=== PATIENT | male | born 1930 | race Caucasian/White ===

== ENCOUNTER 2016-06-21 20:31 | Emergency (ER) | payer MEDICARE ==
[~2016-06-21] VITALS: Ht 172.7 cm; Wt 82.0 kg
[~2016-06-21 20:31] MED LIST: ALEN70 PO; ASPI81 PO; AVOD0.5C PO; CHOL4POW4 PO; LORT5TAB PO; MELO7.5T PO; MEVA40TA6 PO; OMEP20CA5 PO; PAXI20TA26 PO; TAB-TAB PO; TERA2CAP3 PO
[2016-06-21 20:33] VITALS: BP 190/76; PULSE 58; RESP 16; TEMP 98.2; O2SAT 96
--- NOTE | 2016-06-21 22:18 | RADRPT ---
EXAM DATE/TIME: 06/21/2016 22:00 [place] COMPARISON: No previous studies available for comparison. INDICATIONS : Right wrist pain from fall today. MEDICAL HISTORY : None. SURGICAL HISTORY : None. ENCOUNTER: Initial ACUITY: 1 day PAIN SCORE: 5/10 LOCATION: Right wrist. FINDINGS: There is slight angulation of the visualized proximal fifth metacarpal. I doubt an acute fracture, ho wever old injury may be present at this location. Correlation recommended as to site of point tendern ess. There is mild ulna minus variance at the wrist. Degenerative changes present most notably in the thumb carpal joint. No definite wrist fracture. CONCLUSION: No definite acute bony injury. Fracisco Sandoval MD on June 21, 2016 at 22:15 Board Certified Radiologist. This report was verified electronically.
[2016-06-21] MEDS ORDERED: MOBI7.5T PO (22:29)
--- NOTE | 2016-06-21 22:34 | PD ---
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 The patient's history and exam is performed using the [employer] interpreter/translator. The patient states that he did not hit his head. No neck or back pain. He's having pain in his right wrist. He is up-to-date with shots. The injury had occurred sometime around 1:00-2:00 this afternoon. PFSH Past Medical History Cancer: Yes (PROSTATE) Cardiovascular Problems: No Hypertension: Yes Medical other: Yes (KIDNEY STONES) Respiratory: Yes (SLEEP APNEA) Tetanus Vaccination: < 5 Years Past Surgical History Ear Surgery: Yes (CATARACTS REMOVED BOTH EYES) Pacemaker: No Other Surgery: Yes Social History Alcohol Use: No Tobacco Use: No Substance Use: No Allergies-Medications (Allergen,Severity, Reaction): Coded Allergies: No Known Allergies (Verified , 06/21/16) Reported Meds & Prescriptions Reported Meds & Active Scripts Active Mobic (Meloxicam) 7.5 Mg Tab 7.5 Mg PO DAILY Review of Systems Except as stated in HPI: all other systems reviewed are Neg Physical Exam Narrative GENERAL: This is a well-nourished, well-developed patient, in no apparent distress. SKIN: No rashes, ecchymoses or lesions. Warm and dry. HEAD: Atraumatic. Normocephalic. EYES: PERRL, EOMI, no discharge or injection. No scleral icterus. EARS: Clear NOSE: Nasal turbinates appear normal. THROAT: Mucosa pink and moist. Airway patent. NECK: Trachea midline. supple, moves head freely. No pain on palpation. LUNGS: Clear to auscultation. CV: Regular in rhythm. ABDOMEN: Soft nontender. Back: No bony tenderness to palpation. Sits up in bed at 90. No saddle anesthesia. EXT: No clubbing cyanosis or edema. Examination of the right upper extremity reveals soft tissue tenderness and bruising to the thenar eminence as well over the distal radius volar surface. No pain on the dorsal surface of the wrist. No anatomical snuffbox pain. No pain in the fingers, elbow or shoulder. There is a superficial skin tear an area of ecchymosis to the dorsal mid forearm. No suturable laceration. Patient has no pain in the left upper extremity as well as lower extremities. Data Data Last Documented VS Vital Signs Date Time Temp Pulse Resp B/P Pulse Ox O2 Delivery O2 Flow Rate FiO2 06/21/16 21:50 18 97 Room Air 06/21/16 20:33 98.2 58 190/76 Orders Wrist, Complete ([id number]) (06/21/16 21:47) Ice/Cold Pack (06/21/16 21:47) Splint Or Brace Apply/Monitor (06/21/16 22:28) MDM Medical Decision Making Medical Screen Exam Complete: Yes Emergency Medical Condition: Yes Medical Record Reviewed: Yes Interpretation(s) Last 24 hours Impressions Wrist X-Ray 06/21/165 Signed Impressions: Service Date/Time: Tuesday, June 21, 2016 22:00 - CONCLUSION: No definite acute bony injury. Fracisco Sandoval MD Differential Diagnosis MDM: High Differential diagnoses: Fracture, sprain, strain, dislocation, contusion, neurovascular injury Narrative Course X-ray of the right wrist is negative for bony injury. Patient is given a Velcro wrist splint and a prescription for meloxicam. This is right wrist and hand contusion Diagnosis Primary Impression: Contusion of multiple sites of right hand and wrist Patient Instructions: General Instructions Additional Instructions: Rest. Ice for the next 3 days followed by heat . Meloxicam. Velcro wrist splint.. Follow-up with a primary care doctor in one week. Return to the ER for emergencies. Med/Other Pt SpecificInfo: Prescription(s) given Scripts Meloxicam (Mobic)7.5 Mg Tab7.5 Mg PO DAILY #30 TAB Ref 0 Prov:Harvey Clemens MD 06/21/16 Disposition: 01 DISCHARGE HOME Condition: Stable Eren King Jun 21, 2016 22:34
[2016-06-21 22:45] VITALS: BP 172/86
== END 2016-06-21 22:45 | disposition home or self-care (01) ==
LOC: NEPB 20:31
DX: S60.221A Contusion of right hand, initial encounter (principal); S51.811A Laceration without foreign body of right forearm, initial encounter; I10 Essential (primary) hypertension; H91.90 Unspecified hearing loss, unspecified ear; Z87.442 Personal history of urinary calculi; W01.0XXA Fall on same level from slipping, tripping and stumbling without subsequent striking against object, initial encounter; Y93.89 Activity, other specified; Y92.89 Other specified places as the place of occurrence of the external cause; Y99.8 Other external cause status
CPT/HCPCS: 73110; 99283; L3908